=== PATIENT | male | born 1950 | race African-American/Black ===

== ENCOUNTER 2017-07-11 13:57 | Inpatient (IN) ==
[2017-07-11] MEDS ORDERED: ONDANSETRON 4 MG/2 ML VIAL IV PRN (16:56)
[2017-07-11] MEDS ORDERED: GLUCAGON 1 MG VIAL IM PRN (16:56)
[2017-07-11] MEDS ORDERED: LABETALOL 20 MG/4 ML SYRINGE IV PRN (16:56)
[2017-07-11] MEDS ORDERED: DEXTROSE 50% 25 GM/50 ML VIAL IV PRN (16:56)
[2017-07-11] MEDS: ENOXAPARIN 40 MG/0.4 ML SYRINGE SUBCUT SCH (17:48)
[2017-07-11] MEDS: SODIUM CHLORIDE 0.9% 1,000 ML IV SCH (17:48)
[2017-07-11 18:26] LABS: Calcium 9.2 MG/DL (8.5-10.1); Osmolality,Calculated 253.2 MOS/KG (273-304); Potassium 3.8 MMOL/L (3.5-5.1); Thyroid Stimulating Hormone 0.631 uIU/ml (0.358-3.74)
[2017-07-11 18:40] LABS: Apearance,Urine CLEAR (Clear); Bilirubin,Urine Negative (Negative); Blood, Urine Negative (Negative); Glucose,Urine (UA) Negative (Negative); Hyaline Casts,Urine 1 /LPF (0-3); Ketones,Urine Negative (Negative); Mucus,Urine Occasional /LPF (Occasional); Nitrite,Urine Negative (Negative); Protein,Urine Negative; Squamous Epithelial Cell,Urine Occasional /HPF (0-10); Urine Color Yellow (Yellow); Urine Specific Gravity 1.005 (1.001-1.035); Urine Urobilinogen < 2.0 EU/DL (0.2-1.0); WBC,Urine <1 /HPF (0-6)
[2017-07-11] MEDS: ATORVASTATIN 40 MG TABLET PO SCH (20:23)
[2017-07-11] MEDS: INSULIN LISPRO 100 UNIT/ML SUBCUT SCH (22:48)
[2017-07-12] MEDS: SODIUM CHLORIDE 0.9% 1,000 ML IV SCH ×5 (04:48→23:07)
[2017-07-12 07:23] LABS: Basophils % 0.3 % (0.0-0.8); Eosinophils # 0.1 10*3/uL (0.0-0.87); Eosinophils % 0.7 % (0.00-10.9); Hematocrit 32.5 VOL% (42.0-52.0); Hemoglobin 11.2 GM/DL (14.0-18.0); Immature Granulocytes % 0.5 %; Immature Granulocytes Absolute 0.05 #; Lymphocytes # 1.6 10*3/uL (1.4-4.0); Lymphocytes % 14.7 % (21.2-54.2); Mean Corpuscular HGB Conc 34.5 GM/DL (32-36); Mean Corpuscular Hemoglobin 30 PG (27-34); Mean Corpuscular Volume 85.8 FL (87-102); Mean Platelet Volume 10.3 FL (9.6-12.0); Monocytes # 1.3 10*3/uL (0.11-0.8); Monocytes % 12.4 % (1.7-12.7); Neutrophils # 7.7 10*3/uL (1.4-7.4); Neutrophils % 71.4 % (38.7-73.9); Platelet Count 281 T/CUMM (130-400); Red Blood Count 3.79 MC/CUMM (3.8-5.5); Red Cell Distribution Width 13.4 % (9.3-17.3); White Blood Count 10.8 T/CUMM (4-12)
[2017-07-12 07:47] LABS: Calcium 8.6 MG/DL (8.5-10.1); Osmolality,Calculated 253.8 MOS/KG (273-304); Potassium 4.4 MMOL/L (3.5-5.1); Risk Ratio 3.86; VLDL CHOLESTEROL 20.6 MG/DL
[2017-07-12] MEDS: BENAZEPRIL 10 MG TABLET PO SCH (09:44)
[2017-07-12] MEDS: INSULIN LISPRO 100 UNIT/ML SUBCUT SCH ×4 (09:44→20:56)
[2017-07-12] MEDS: amLODIPine 10 MG TABLET PO SCH (09:44)
[2017-07-12] MEDS: ASPIRIN 325 MG TABLET PO SCH (09:44)
[2017-07-12] MEDS ORDERED: PROMETHAZINE 25 MG/1 ML VIAL IM STA (12:48)
[2017-07-12] MEDS: ENOXAPARIN 40 MG/0.4 ML SYRINGE SUBCUT SCH (17:23)
[2017-07-12] MEDS: ATORVASTATIN 40 MG TABLET PO SCH (20:48)
[2017-07-13 07:16] LABS: Basophils % 0.4 % (0.0-0.8); Eosinophils # 0.3 10*3/uL (0.0-0.87); Eosinophils % 2.5 % (0.00-10.9); Hematocrit 33.2 VOL% (42.0-52.0); Hemoglobin 11.3 GM/DL (14.0-18.0); Immature Granulocytes % 0.3 %; Immature Granulocytes Absolute 0.03 #; Lymphocytes # 1.5 10*3/uL (1.4-4.0); Lymphocytes % 14.4 % (21.2-54.2); Mean Corpuscular Hemoglobin 30 PG (27-34); Mean Corpuscular Volume 87.4 FL (87-102); Monocytes # 1.1 10*3/uL (0.11-0.8); Monocytes % 10.1 % (1.7-12.7); Neutrophils # 7.6 10*3/uL (1.4-7.4); Neutrophils % 72.3 % (38.7-73.9); Platelet Count 273 T/CUMM (130-400); Red Cell Distribution Width 13.7 % (9.3-17.3); White Blood Count 10.5 T/CUMM (4-12)
[2017-07-13 08:03] LABS: Calcium 8.9 MG/DL (8.5-10.1); Magnesium 2.3 MG/DL (1.8-2.4); Osmolality,Calculated 256.5 MOS/KG (273-304); Potassium 4.3 MMOL/L (3.5-5.1); Troponin I Only 0.031 NG/ML (0.00-0.045)
[2017-07-13] MEDS: INSULIN LISPRO 100 UNIT/ML SUBCUT SCH ×3 (08:10→17:35)
[2017-07-13] MEDS: BENAZEPRIL 10 MG TABLET PO SCH (08:59)
[2017-07-13] MEDS: amLODIPine 10 MG TABLET PO SCH (09:00)
[2017-07-13] MEDS: ASPIRIN 325 MG TABLET PO SCH (09:00)
[2017-07-13] MEDS: SODIUM CHLORIDE 0.9% 1,000 ML IV SCH ×3 (09:01→21:45)
[2017-07-13] MEDS: ENOXAPARIN 40 MG/0.4 ML SYRINGE SUBCUT SCH (17:35)
[2017-07-13] MEDS: ATORVASTATIN 40 MG TABLET PO SCH (21:04)
[2017-07-14] MEDS: INSULIN LISPRO 100 UNIT/ML SUBCUT SCH ×4 (00:17→18:07)
[2017-07-14] MEDS: SODIUM CHLORIDE 0.9% 1,000 ML IV SCH ×5 (00:28→16:44)
[2017-07-14] MEDS ORDERED: FUROSEMIDE 40 MG/4 ML VIAL IV ONE ×2 (02:20→02:23)
[2017-07-14] MEDS ORDERED: FUROSEMIDE 40 MG/4 ML VIAL ONE (02:25)
[2017-07-14 03:17] LABS: ABG Base Excess 5.7 MMOL/L (-2.5-2.5); ABG HCO3 29.1 MMOL/L (20-26); ABG Oxygen Saturation 72.6 % (95-100); ABG PCO2 59.4 MM HG (35-48); ABG PH 7.354 (7.35-7.45); ABG TCO2 29.9 MMOL/L (23-27)
[2017-07-14 03:18] LABS: Allen Test Positive
[2017-07-14 03:22] LABS: ABG PO2 40.8 MM HG (80-95)
[2017-07-14] MEDS ORDERED: PROPOFOL 1,000 MG/100 ML BOTTLE IV ONE (03:38)
[2017-07-14] MEDS ORDERED: fentaNYL INJ 1,250 MCG in SODIUM CHLORIDE 0.9% 225 ML IV SCH (04:00)
[2017-07-14] MEDS ORDERED: MIDAZOLAM 100 MG in SODIUM CHLORIDE 0.9% 80 ML IV SCH (04:00)
[2017-07-14 04:24] LABS: Allen Test Positive; Pt O2 Delivery Device Ventilator
[2017-07-14 04:27] LABS: ABG Base Excess 5.6 MMOL/L (-2.5-2.5); ABG HCO3 29.5 MMOL/L (20-26); ABG Oxygen Saturation 95.4 % (95-100); ABG PH 7.426 (7.35-7.45); ABG TCO2 27.7 MMOL/L (23-27)
[2017-07-14 05:41] LABS: Magnesium 1.9 MG/DL (1.8-2.4); Osmolality,Calculated 267.9 MOS/KG (273-304); Phosphorous 3.2 MG/DL (2.5-4.9); Potassium 4.7 MMOL/L (3.5-5.1); Prealbumin 16.7 MG/DL (20-40)
[2017-07-14 06:36] LABS: Apearance,Urine CLEAR (Clear); Bilirubin,Urine Negative (Negative); Blood, Urine Small mg/dL (Negative); Glucose,Urine (UA) Negative (Negative); Hyaline Casts,Urine 4 /LPF (0-3); Ketones,Urine 5 mg/dL (Negative); Nitrite,Urine Negative (Negative); Protein,Urine Negative; RBC,Urine <1 /HPF (0-4); Squamous Epithelial Cell,Urine Occasional /HPF (0-10); Urine Color Straw (Yellow); Urine Specific Gravity 1.005 (1.001-1.035); Urine Urobilinogen < 2.0 EU/DL (0.2-1.0); WBC,Urine <1 /HPF (0-6)
[2017-07-14] MEDS ORDERED: SUCCINYLCHOLINE 200 MG/10 ML VIAL ONE (07:19)
[2017-07-14] MEDS ORDERED: ETOMIDATE 20 MG/10 ML VIAL IV ONE (07:19)
[2017-07-14 07:30] LABS: Basophils % 0.2 % (0.0-0.8); Eosinophils % 0.2 % (0.00-10.9); Hematocrit 35.1 VOL% (42.0-52.0); Hemoglobin 11.9 GM/DL (14.0-18.0); Immature Granulocytes % 0.4 %; Immature Granulocytes Absolute 0.06 #; Lymphocytes # 1.3 10*3/uL (1.4-4.0); Lymphocytes % 9.9 % (21.2-54.2); Mean Corpuscular HGB Conc 33.9 GM/DL (32-36); Mean Corpuscular Hemoglobin 30 PG (27-34); Mean Corpuscular Volume 86.9 FL (87-102); Mean Platelet Volume 9.6 FL (9.6-12.0); Monocytes # 0.8 10*3/uL (0.11-0.8); Monocytes % 6.2 % (1.7-12.7); Neutrophils # 11.1 10*3/uL (1.4-7.4); Neutrophils % 83.1 % (38.7-73.9); Platelet Count 286 T/CUMM (130-400); Red Blood Count 4.04 MC/CUMM (3.8-5.5); Red Cell Distribution Width 13.8 % (9.3-17.3); White Blood Count 13.3 T/CUMM (4-12)
[2017-07-14] MEDS ORDERED: SODIUM CHLORIDE 0.9% 500 ML IV ONE (10:10)
[2017-07-14] MEDS: amLODIPine 10 MG TABLET PO SCH (10:17)
[2017-07-14] MEDS: BENAZEPRIL 10 MG TABLET PO SCH (10:17)
[2017-07-14] MEDS: methylPREDNISolone SOD SUC 40 MG/1 ML VIAL IV SCH ×2 (10:32→18:07)
[2017-07-14] MEDS: PIPERACILLIN/TAZOBACTAM 3,375 MG in SODIUM CHLORIDE 0.9% 100 ML IV SCH ×2 (10:32→18:08)
[2017-07-14] MEDS: PANTOPRAZOLE 40 MG VIAL IV SCH (10:32)
[2017-07-14] MEDS: ASPIRIN 325 MG TABLET PO SCH (10:32)
[2017-07-14] MEDS: ENOXAPARIN 100 MG/ML SYRINGE SUBCUT SCH ×2 (10:48→21:12)
[2017-07-14 11:35] LABS: ABG HCO3 26.9 MMOL/L (20-26); ABG Oxygen Saturation 88.7 % (95-100); ABG PCO2 49.6 MM HG (35-48); ABG PH 7.376 (7.35-7.45)
[2017-07-14] MEDS: ALBUTEROL/IPRATROPIUM 3 ML NEB RESP TX SCH ×2 (13:43→20:10)
[2017-07-14 15:02] LABS: ABG HCO3 24.4 MMOL/L (20-26); ABG Oxygen Saturation 95.5 % (95-100); ABG PCO2 48.2 MM HG (35-48); ABG PH 7.344 (7.35-7.45); ABG PO2 81.7 MM HG (80-95); ABG TCO2 23.6 MMOL/L (23-27)
[2017-07-14] MEDS: PROPOFOL 1,000 MG/100 ML BOTTLE IV SCH (15:45)
[2017-07-14] MEDS: ATORVASTATIN 40 MG TABLET PO SCH (20:55)
[2017-07-15] MEDS: SODIUM CHLORIDE 0.9% 1,000 ML IV SCH ×4 (00:33→17:36)
[2017-07-15] MEDS: ALBUTEROL/IPRATROPIUM 3 ML NEB RESP TX SCH ×4 (00:41→19:22)
[2017-07-15] MEDS: INSULIN LISPRO 100 UNIT/ML SUBCUT SCH ×4 (00:47→17:51)
[2017-07-15] MEDS: methylPREDNISolone SOD SUC 40 MG/1 ML VIAL IV SCH ×3 (00:48→17:52)
[2017-07-15] MEDS: PIPERACILLIN/TAZOBACTAM 3,375 MG in SODIUM CHLORIDE 0.9% 100 ML IV SCH ×3 (03:00→17:51)
[2017-07-15 03:30] LABS: Allen Test Positive; Pt O2 Delivery Device Ventilator
[2017-07-15 03:31] LABS: ABG Base Excess -1.2 MMOL/L (-2.5-2.5); ABG HCO3 23.3 MMOL/L (20-26); ABG Oxygen Saturation 99.3 % (95-100); ABG PCO2 37.9 MM HG (35-48); ABG PH 7.406 (7.35-7.45); ABG PO2 367.6 MM HG (80-95); ABG TCO2 24.4 MMOL/L (23-27)
[2017-07-15] MEDS ORDERED: SODIUM CHLORIDE 0.9% 500 ML IV ONE (04:24)
[2017-07-15 04:28] LABS: Basophils % 0.1 % (0.0-0.8); Hematocrit 32.4 VOL% (42.0-52.0); Hemoglobin 10.8 GM/DL (14.0-18.0); Immature Granulocytes % 0.5 %; Immature Granulocytes Absolute 0.08 #; Lymphocytes % 5.9 % (21.2-54.2); Mean Corpuscular HGB Conc 33.3 GM/DL (32-36); Mean Corpuscular Hemoglobin 30 PG (27-34); Mean Corpuscular Volume 88.5 FL (87-102); Mean Platelet Volume 9.7 FL (9.6-12.0); Monocytes # 0.6 10*3/uL (0.11-0.8); Monocytes % 3.7 % (1.7-12.7); Neutrophils # 15.5 10*3/uL (1.4-7.4); Neutrophils % 89.8 % (38.7-73.9); Platelet Count 250 T/CUMM (130-400); Red Blood Count 3.66 MC/CUMM (3.8-5.5); Red Cell Distribution Width 14.3 % (9.3-17.3); White Blood Count 17.2 T/CUMM (4-12)
[2017-07-15 04:59] LABS: Calcium 8.8 MG/DL (8.5-10.1); Magnesium 2.1 MG/DL (1.8-2.4); Osmolality,Calculated 281.8 MOS/KG (273-304); Potassium 4.8 MMOL/L (3.5-5.1)
[2017-07-15] MEDS ORDERED: SALIVA SUBSTITUTE SPRAY 60 ML CAN SWISH/SPIT PRN (06:21)
[2017-07-15] MEDS: ENOXAPARIN 100 MG/ML SYRINGE SUBCUT SCH ×2 (09:30→21:23)
[2017-07-15] MEDS: PANTOPRAZOLE 40 MG VIAL IV SCH (09:30)
[2017-07-15] MEDS: amLODIPine 10 MG TABLET PO SCH (09:32)
[2017-07-15] MEDS: ASPIRIN 325 MG TABLET PO SCH (09:32)
[2017-07-15] MEDS: BENAZEPRIL 10 MG TABLET PO SCH (09:32)
[2017-07-15] MEDS: PROPOFOL 1,000 MG/100 ML BOTTLE IV SCH (12:37)
[2017-07-15] MEDS: ATORVASTATIN 40 MG TABLET PO SCH (21:23)
[2017-07-16] MEDS: INSULIN LISPRO 100 UNIT/ML SUBCUT SCH ×5 (00:12→17:23)
[2017-07-16] MEDS: SODIUM CHLORIDE 0.9% 1,000 ML IV SCH ×4 (00:13→16:19)
[2017-07-16] MEDS: ALBUTEROL/IPRATROPIUM 3 ML NEB RESP TX SCH ×4 (00:47→19:15)
[2017-07-16] MEDS: PIPERACILLIN/TAZOBACTAM 3,375 MG in SODIUM CHLORIDE 0.9% 100 ML IV SCH ×3 (03:33→17:24)
[2017-07-16] MEDS: methylPREDNISolone SOD SUC 40 MG/1 ML VIAL IV SCH ×3 (03:33→17:23)
[2017-07-16 07:35] LABS: ABG Base Excess -0.4 MMOL/L (-2.5-2.5); ABG Oxygen Saturation 94.8 % (95-100); ABG PCO2 34.7 MM HG (35-48); ABG PH 7.435 (7.35-7.45); ABG TCO2 21.1 MMOL/L (23-27)
[2017-07-16] MEDS: PANTOPRAZOLE 40 MG VIAL IV SCH (08:28)
[2017-07-16] MEDS: amLODIPine 10 MG TABLET PO SCH (08:28)
[2017-07-16] MEDS: ASPIRIN 325 MG TABLET PO SCH (08:28)
[2017-07-16] MEDS: PROPOFOL 1,000 MG/100 ML BOTTLE IV SCH ×4 (08:37→19:15)
[2017-07-16] MEDS: ENOXAPARIN 100 MG/ML SYRINGE SUBCUT SCH ×2 (09:12→22:00)
[2017-07-16] MEDS: DORNASE ALFA 2.5 MG/2.5 ML VIAL RESP TX SCH ×2 (09:54→19:22)
[2017-07-16 13:57] LABS: Basophils % 0.1 % (0.0-0.8); Hemoglobin 10.3 GM/DL (14.0-18.0); Immature Granulocytes % 0.9 %; Immature Granulocytes Absolute 0.14 #; Lymphocytes # 0.7 10*3/uL (1.4-4.0); Mean Corpuscular HGB Conc 34.3 GM/DL (32-36); Mean Corpuscular Hemoglobin 30 PG (27-34); Mean Platelet Volume 10.7 FL (9.6-12.0); Monocytes # 0.9 10*3/uL (0.11-0.8); Monocytes % 5.3 % (1.7-12.7); Neutrophils # 14.4 10*3/uL (1.4-7.4); Neutrophils % 89.7 % (38.7-73.9); Platelet Count 248 T/CUMM (130-400); Red Blood Count 3.41 MC/CUMM (3.8-5.5); Red Cell Distribution Width 14.6 % (9.3-17.3); White Blood Count 16.1 T/CUMM (4-12)
[2017-07-16 14:04] LABS: Calcium 8.2 MG/DL (8.5-10.1); Osmolality,Calculated 294.4 MOS/KG (273-304); Potassium 4.6 MMOL/L (3.5-5.1)
[2017-07-16 14:16] LABS: Burr Cells Slight; Lymphocytes 4 % (20-55); Segmented Neutrophils 92 % (50-85); Total Cells Counted 100
[2017-07-16 14:17] LABS: Platelet Estimate Adequate; Schistocytes Few
[2017-07-16] MEDS: ATORVASTATIN 40 MG TABLET PO SCH (21:45)
[2017-07-17] MEDS: INSULIN LISPRO 100 UNIT/ML SUBCUT SCH ×5 (00:13→20:20)
[2017-07-17] MEDS: SODIUM CHLORIDE 0.9% 1,000 ML IV SCH ×2 (00:14→10:08)
[2017-07-17] MEDS: PROPOFOL 1,000 MG/100 ML BOTTLE IV SCH ×3 (00:15→14:26)
[2017-07-17] MEDS: ALBUTEROL/IPRATROPIUM 3 ML NEB RESP TX SCH ×4 (01:06→19:36)
[2017-07-17] MEDS: PIPERACILLIN/TAZOBACTAM 3,375 MG in SODIUM CHLORIDE 0.9% 100 ML IV SCH ×3 (03:00→17:53)
[2017-07-17] MEDS: methylPREDNISolone SOD SUC 40 MG/1 ML VIAL IV SCH ×3 (03:15→17:54)
[2017-07-17 03:21] LABS: ABG HCO3 22.9 MMOL/L (20-26); ABG Oxygen Saturation 98.3 % (95-100); ABG PH 7.486 (7.35-7.45); ABG PO2 158.2 MM HG (80-95); ABG TCO2 23.8 MMOL/L (23-27)
[2017-07-17 06:03] LABS: Calcium 8.9 MG/DL (8.5-10.1); Magnesium 2.6 MG/DL (1.8-2.4); Osmolality,Calculated 308.4 MOS/KG (273-304); Potassium 4.4 MMOL/L (3.5-5.1)
[2017-07-17] MEDS: DORNASE ALFA 2.5 MG/2.5 ML VIAL RESP TX SCH ×2 (07:35→19:46)
[2017-07-17 09:38] LABS: ABG Base Excess -0.6 MMOL/L (-2.5-2.5); ABG Oxygen Saturation 92.9 % (95-100); ABG PCO2 39.2 MM HG (35-48); ABG PH 7.405 (7.35-7.45); ABG PO2 69.9 MM HG (80-95); ABG TCO2 25.2 MMOL/L (23-27); Allen Test Positive; Pt O2 Delivery Device BIPAP
[2017-07-17] MEDS: ENOXAPARIN 100 MG/ML SYRINGE SUBCUT SCH (10:09)
[2017-07-17] MEDS: PANTOPRAZOLE 40 MG VIAL IV SCH (10:09)
[2017-07-17] MEDS: amLODIPine 10 MG TABLET PO SCH (10:10)
[2017-07-17] MEDS: ASPIRIN 325 MG TABLET PO SCH (10:10)
[2017-07-17] MEDS: INSULIN GLARGINE 100 UNIT/ML SUBCUT SCH (16:48)
[2017-07-17] MEDS: FUROSEMIDE 40 MG/4 ML VIAL IV SCH (16:49)
[2017-07-17] MEDS: ATORVASTATIN 40 MG TABLET PO SCH (20:20)
[2017-07-18] MEDS: PIPERACILLIN/TAZOBACTAM 3,375 MG in SODIUM CHLORIDE 0.9% 100 ML IV SCH ×3 (01:34→19:00)
[2017-07-18] MEDS: methylPREDNISolone SOD SUC 40 MG/1 ML VIAL IV SCH ×3 (01:34→21:05)
[2017-07-18] MEDS: ALBUTEROL/IPRATROPIUM 3 ML NEB RESP TX SCH ×4 (02:28→19:30)
[2017-07-18] MEDS: DORNASE ALFA 2.5 MG/2.5 ML VIAL RESP TX SCH (07:24)
[2017-07-18] MEDS: amLODIPine 10 MG TABLET PO SCH (08:20)
[2017-07-18] MEDS: ASPIRIN 325 MG TABLET PO SCH (08:20)
[2017-07-18] MEDS: PANTOPRAZOLE 40 MG VIAL IV SCH (08:22)
[2017-07-18] MEDS: INSULIN GLARGINE 100 UNIT/ML SUBCUT SCH (08:22)
[2017-07-18] MEDS: FUROSEMIDE 40 MG/4 ML VIAL IV SCH (08:22)
[2017-07-18] MEDS: INSULIN LISPRO 100 UNIT/ML SUBCUT SCH ×4 (08:22→21:04)
[2017-07-18] MEDS ORDERED: ENOXAPARIN 30 MG/0.3 ML SYRINGE SUBCUT SCH (09:00)
[2017-07-18] MEDS ORDERED: INSULIN GLARGINE 100 UNIT/ML SUBCUT SCH (14:09)
[2017-07-18] MEDS: INSULIN REGULAR 100 UNIT/ML SUBCUT SCH ×2 (17:01→21:05)
[2017-07-18] MEDS: ATORVASTATIN 40 MG TABLET PO SCH (21:03)
[2017-07-19] MEDS: ALBUTEROL/IPRATROPIUM 3 ML NEB RESP TX SCH ×4 (00:16→19:33)
[2017-07-19] MEDS: PIPERACILLIN/TAZOBACTAM 3,375 MG in SODIUM CHLORIDE 0.9% 100 ML IV SCH ×2 (02:55→08:23)
[2017-07-19 05:17] LABS: Basophils % 0.1 % (0.0-0.8); Hematocrit 32.5 VOL% (42.0-52.0); Immature Granulocytes % 5.1 %; Lymphocytes # 1.1 10*3/uL (1.4-4.0); Lymphocytes % 6.1 % (21.2-54.2); Mean Corpuscular HGB Conc 33.8 GM/DL (32-36); Mean Corpuscular Hemoglobin 30 PG (27-34); Mean Corpuscular Volume 88.3 FL (87-102); Mean Platelet Volume 10.2 FL (9.6-12.0); Monocytes # 1.5 10*3/uL (0.11-0.8); Monocytes % 8.6 % (1.7-12.7); NRBC # 0.04 10*3/uL; Neutrophils # 14.1 10*3/uL (1.4-7.4); Neutrophils % 80.1 % (38.7-73.9); Platelet Count 272 T/CUMM (130-400); Red Blood Count 3.68 MC/CUMM (3.8-5.5); Red Cell Distribution Width 14.7 % (9.3-17.3); White Blood Count 17.6 T/CUMM (4-12)
[2017-07-19 05:52] LABS: Giant Platelets Few; Hypochromasia 1+; Lymphocytes 8 % (20-55); Ovalocytes Slight; Platelet Estimate Adequate; Segmented Neutrophils 80 % (50-85); Total Cells Counted 100
[2017-07-19] MEDS: ASPIRIN 325 MG TABLET PO SCH (08:28)
[2017-07-19] MEDS: INSULIN REGULAR 100 UNIT/ML SUBCUT SCH ×4 (08:28→20:42)
[2017-07-19] MEDS: methylPREDNISolone SOD SUC 40 MG/1 ML VIAL IV SCH ×2 (08:28→21:36)
[2017-07-19] MEDS: amLODIPine 10 MG TABLET PO SCH (08:28)
[2017-07-19] MEDS: PANTOPRAZOLE 40 MG VIAL IV SCH (08:28)
[2017-07-19] MEDS: INSULIN LISPRO 100 UNIT/ML SUBCUT SCH ×4 (08:29→20:43)
[2017-07-19] MEDS: ENOXAPARIN 40 MG/0.4 ML SYRINGE SUBCUT SCH (08:37)
[2017-07-19] MEDS ORDERED: LEVOFLOXACIN INJ 750 MG in PREMIX 1 EACH IV SCH (09:30)
[2017-07-19] MEDS: CARVEDILOL 6.25 MG TABLET PO SCH ×2 (13:32→20:44)
[2017-07-19] MEDS: ATORVASTATIN 40 MG TABLET PO SCH (20:44)
[2017-07-20] MEDS: ALBUTEROL/IPRATROPIUM 3 ML NEB RESP TX SCH ×4 (00:32→19:17)
[2017-07-20] MEDS ORDERED: fentaNYL 100 MCG/2 ML VIAL IV PRN (04:21)
[2017-07-20] MEDS ORDERED: PROPOFOL 1,000 MG/100 ML BOTTLE IV ONE (04:21)
[2017-07-20] MEDS ORDERED: GLUCAGON 1 MG VIAL IM PRN (04:48)
[2017-07-20] MEDS ORDERED: DEXTROSE 50% 25 GM/50 ML VIAL IV PRN (04:48)
[2017-07-20 05:19] LABS: ABG Base Excess -1.3 MMOL/L (-2.5-2.5); ABG HCO3 23.3 MMOL/L (20-26); ABG Oxygen Saturation 97.4 % (95-100); ABG PCO2 45.1 MM HG (35-48); ABG PH 7.345 (7.35-7.45); ABG TCO2 22.1 MMOL/L (23-27)
[2017-07-20 06:26] LABS: Basophils # 0.1 10*3/uL (0.0-0.2); Basophils % 0.2 % (0.0-0.8); Hematocrit 33.6 VOL% (42.0-52.0); Hemoglobin 11.4 GM/DL (14.0-18.0); Immature Granulocytes % 4.7 %; Immature Granulocytes Absolute 1.26 #; Lymphocytes # 1.1 10*3/uL (1.4-4.0); Lymphocytes % 4.1 % (21.2-54.2); Mean Corpuscular HGB Conc 33.9 GM/DL (32-36); Mean Corpuscular Hemoglobin 30 PG (27-34); Mean Corpuscular Volume 88.4 FL (87-102); Mean Platelet Volume 10.4 FL (9.6-12.0); Monocytes % 7.6 % (1.7-12.7); NRBC # 0.12 10*3/uL; Neutrophils # 22.2 10*3/uL (1.4-7.4); Neutrophils % 83.4 % (38.7-73.9); Platelet Count 320 T/CUMM (130-400); Red Cell Distribution Width 15.1 % (9.3-17.3); White Blood Count 26.7 T/CUMM (4-12)
[2017-07-20 06:51] LABS: Hypochromasia 1+; Lymphocytes 4 % (20-55); Nucleated Red Blood Cells 1 (0-5); Segmented Neutrophils 89 % (50-85); Total Cells Counted 100
[2017-07-20 06:52] LABS: Burr Cells Slight; Microcytosis 1+; Platelet Estimate Normal
[2017-07-20] MEDS: INSULIN REGULAR 100 UNIT/ML SUBCUT SCH ×3 (07:02→18:26)
[2017-07-20 07:04] LABS: Calcium 8.8 MG/DL (8.5-10.1); Magnesium 2.5 MG/DL (1.8-2.4); Osmolality,Calculated 304.7 MOS/KG (273-304); Phosphorous 6.8 MG/DL (2.5-4.9); Potassium 5.6 MMOL/L (3.5-5.1); Prealbumin 21.6 MG/DL (20-40)
[2017-07-20] MEDS ORDERED: LORazepam 2 MG/1 ML VIAL IV ONE ×3 (07:59→10:17)
[2017-07-20] MEDS ORDERED: levETIRAcetam INJ 500 MG in SODIUM CHLORIDE 0.9% 50 ML IV ONE ×2 (08:30→08:43)
[2017-07-20] MEDS: PROPOFOL 1,000 MG/100 ML BOTTLE IV SCH ×4 (08:35→23:33)
[2017-07-20] MEDS: ASPIRIN CHEW 81 MG TABLET PO SCH (09:23)
[2017-07-20] MEDS: amLODIPine 10 MG TABLET PO SCH (09:23)
[2017-07-20] MEDS: CARVEDILOL 6.25 MG TABLET PO SCH (09:23)
[2017-07-20] MEDS: ENOXAPARIN 40 MG/0.4 ML SYRINGE SUBCUT SCH (09:28)
[2017-07-20] MEDS: PANTOPRAZOLE 40 MG VIAL IV SCH (09:29)
[2017-07-20] MEDS: methylPREDNISolone SOD SUC 40 MG/1 ML VIAL IV SCH ×2 (09:31→22:15)
[2017-07-20] MEDS ORDERED: SODIUM POLYSTYRENE SULFATE 15 GM/60 ML BOTTLE PO ONE (12:57)
[2017-07-20] MEDS ORDERED: INSULIN REGULAR 100 UNIT/ML IV ONE (13:04)
[2017-07-20] MEDS: INSULIN GLARGINE 100 UNIT/ML SUBCUT SCH (15:47)
[2017-07-20] MEDS: levETIRAcetam INJ 500 MG in SODIUM CHLORIDE 0.9% 50 ML IV SCH ×2 (15:48→23:24)
[2017-07-20] MEDS: PIPERACILLIN/TAZOBACTAM 3,375 MG in SODIUM CHLORIDE 0.9% 100 ML IV SCH ×2 (15:58→22:18)
[2017-07-20 22:15] LABS: Apearance,Urine Slightly Hazy (Clear); Bacteria,Urine Occasional /HPF (Few); Bilirubin,Urine Negative (Negative); Blood, Urine Negative (Negative); Glucose,Urine (UA) Negative (Negative); Ketones,Urine Negative (Negative); Mucus,Urine Occasional /LPF (Occasional); Nitrite,Urine Negative (Negative); Protein,Urine Negative; RBC,Urine 3 /HPF (0-4); Urine Color Yellow (Yellow); Urine Specific Gravity 1.023 (1.001-1.035); Urine Urobilinogen < 2.0 EU/DL (0.2-1.0); WBC,Urine 10 /HPF (0-6)
[2017-07-20] MEDS: ATORVASTATIN 40 MG TABLET PO SCH (22:15)
[2017-07-21] MEDS: ALBUTEROL/IPRATROPIUM 3 ML NEB RESP TX SCH ×4 (00:17→18:57)
[2017-07-21] MEDS: INSULIN REGULAR 100 UNIT/ML SUBCUT SCH ×7 (00:39→23:49)
[2017-07-21] MEDS: PROPOFOL 1,000 MG/100 ML BOTTLE IV SCH ×4 (04:33→18:22)
[2017-07-21 05:24] LABS: ABG Base Excess -0.8 MMOL/L (-2.5-2.5); ABG HCO3 23.8 MMOL/L (20-26); ABG Oxygen Saturation 99.5 % (95-100); ABG PCO2 34.7 MM HG (35-48); ABG TCO2 20.7 MMOL/L (23-27)
[2017-07-21 05:35] LABS: Basophils % 0.2 % (0.0-0.8); Hemoglobin 10.5 GM/DL (14.0-18.0); Immature Granulocytes % 4.4 %; Lymphocytes # 1.4 10*3/uL (1.4-4.0); Lymphocytes % 5.6 % (21.2-54.2); Mean Corpuscular HGB Conc 33.9 GM/DL (32-36); Mean Corpuscular Hemoglobin 30 PG (27-34); Mean Corpuscular Volume 88.6 FL (87-102); Monocytes # 2.2 10*3/uL (0.11-0.8); Monocytes % 8.9 % (1.7-12.7); NRBC # 0.23 10*3/uL; Neutrophils # 20.3 10*3/uL (1.4-7.4); Neutrophils % 80.9 % (38.7-73.9); Platelet Count 279 T/CUMM (130-400); Red Cell Distribution Width 15.1 % (9.3-17.3); White Blood Count 25.1 T/CUMM (4-12)
[2017-07-21 06:06] LABS: Calcium 8.7 MG/DL (8.5-10.1); Magnesium 2.6 MG/DL (1.8-2.4); Osmolality,Calculated 323.1 MOS/KG (273-304); Phosphorous 6.9 MG/DL (2.5-4.9); Potassium 4.9 MMOL/L (3.5-5.1); Prealbumin 21.9 MG/DL (20-40)
[2017-07-21] MEDS: PIPERACILLIN/TAZOBACTAM 3,375 MG in SODIUM CHLORIDE 0.9% 100 ML IV SCH ×3 (06:07→22:33)
[2017-07-21 07:39] LABS: Burr Cells 2+; Lymphocytes 7 % (20-55); Nucleated Red Blood Cells 1 (0-5); Polychromasia Slight; Segmented Neutrophils 86 % (50-85); Target Cells Slight; Total Cells Counted 100
[2017-07-21 07:40] LABS: Platelet Estimate Adequate
[2017-07-21] MEDS: INSULIN GLARGINE 100 UNIT/ML SUBCUT SCH (09:08)
[2017-07-21] MEDS: levETIRAcetam INJ 500 MG in SODIUM CHLORIDE 0.9% 50 ML IV SCH ×3 (09:08→23:50)
[2017-07-21] MEDS: ENOXAPARIN 40 MG/0.4 ML SYRINGE SUBCUT SCH (09:09)
[2017-07-21] MEDS: PANTOPRAZOLE 40 MG VIAL IV SCH (09:09)
[2017-07-21] MEDS: methylPREDNISolone SOD SUC 40 MG/1 ML VIAL IV SCH ×2 (09:09→22:33)
[2017-07-21] MEDS: ASPIRIN CHEW 81 MG TABLET PO SCH (09:09)
[2017-07-21] MEDS ORDERED: PHENYLEPHRINE DRIP 40 MG/250 ML PREMIX IV SCH (12:00)
[2017-07-21] MEDS ORDERED: INSULIN GLARGINE 100 UNIT/ML SUBCUT SCH (14:12)
[2017-07-21 17:12] LABS: Apearance,Urine Slightly Hazy (Clear); Bacteria,Urine Occasional /HPF (Few); Bilirubin,Urine Negative (Negative); Blood, Urine Moderate mg/dL (Negative); Glucose,Urine (UA) 50 mg/dL (Negative); Hyaline Casts,Urine 1 /LPF (0-3); Ketones,Urine Negative (Negative); Mucus,Urine Occasional /LPF (Occasional); Nitrite,Urine Negative (Negative); Protein,Urine Negative; RBC,Urine 1 /HPF (0-4); Uric Acid Crystals,Urine Few /HPF (<1); Urine Color Yellow (Yellow); Urine Specific Gravity 1.013 (1.001-1.035); Urine Urobilinogen < 2.0 EU/DL (0.2-1.0); WBC,Urine 3 /HPF (0-6)
[2017-07-21 17:28] LABS: Albumin 2.6 G/DL (3.4-5.0); Bilirubin,Direct 0.16 MG/DL (0.0-0.20); Bilirubin,Indirect 0.2 MG/DL (0.0-1.0); Bilirubin,Total 0.4 MG/DL (0.2-1.0); Total Protein 5.1 G/DL (6.4-8.3)
[2017-07-21] MEDS: SODIUM ACETATE 50 MEQ in SODIUM CHLORIDE 0.45% 1,000 ML IV SCH (18:22)
[2017-07-21] MEDS: ATORVASTATIN 40 MG TABLET PO SCH (22:33)
[2017-07-22] MEDS: ALBUTEROL/IPRATROPIUM 3 ML NEB RESP TX SCH ×4 (00:13→19:14)
[2017-07-22] MEDS: PROPOFOL 1,000 MG/100 ML BOTTLE IV SCH ×6 (01:16→21:07)
[2017-07-22 04:38] LABS: Basophils % 0.1 % (0.0-0.8); Hemoglobin 10.1 GM/DL (14.0-18.0); Immature Granulocytes % 4.6 %; Lymphocytes # 0.7 10*3/uL (1.4-4.0); Lymphocytes % 3.4 % (21.2-54.2); Mean Corpuscular HGB Conc 33.7 GM/DL (32-36); Mean Corpuscular Hemoglobin 30 PG (27-34); Mean Corpuscular Volume 89.6 FL (87-102); Monocytes % 9.2 % (1.7-12.7); NRBC # 0.12 10*3/uL; Neutrophils % 82.7 % (38.7-73.9); Platelet Count 212 T/CUMM (130-400); Red Blood Count 3.35 MC/CUMM (3.8-5.5); Red Cell Distribution Width 15.3 % (9.3-17.3); White Blood Count 21.7 T/CUMM (4-12)
[2017-07-22 05:27] LABS: ABG Base Excess -0.8 MMOL/L (-2.5-2.5); ABG HCO3 23.7 MMOL/L (20-26); ABG Oxygen Saturation 99.4 % (95-100); ABG PCO2 40.4 MM HG (35-48); ABG PH 7.384 (7.35-7.45); ABG TCO2 21.9 MMOL/L (23-27); Allen Test Positive; Pt O2 Delivery Device Ventilator
[2017-07-22 05:31] LABS: Calcium 8.8 MG/DL (8.5-10.1); Osmolality,Calculated 327.8 MOS/KG (273-304); Potassium 4.6 MMOL/L (3.5-5.1)
[2017-07-22 05:56] LABS: Band Neutrophils 1 % (0-10); Giant Platelets Few; Hypochromasia 1+; Lymphocytes 3 % (20-55); Nucleated Red Blood Cells 2 (0-5); Ovalocytes Slight; Platelet Estimate Adequate; Segmented Neutrophils 88 % (50-85); Total Cells Counted 100
[2017-07-22 05:57] LABS: Microcytosis Slight
[2017-07-22] MEDS: PIPERACILLIN/TAZOBACTAM 3,375 MG in SODIUM CHLORIDE 0.9% 100 ML IV SCH ×3 (06:21→21:08)
[2017-07-22] MEDS: INSULIN REGULAR 100 UNIT/ML SUBCUT SCH ×8 (06:23→23:07)
[2017-07-22] MEDS: levETIRAcetam INJ 500 MG in SODIUM CHLORIDE 0.9% 50 ML IV SCH (06:35)
[2017-07-22] MEDS: MULTIVITAMIN LIQUID (CENTRUM) 60 ML BOTTLE PER TUBE SCH (08:01)
[2017-07-22] MEDS: ASPIRIN CHEW 81 MG TABLET PO SCH (08:01)
[2017-07-22] MEDS: ENOXAPARIN 40 MG/0.4 ML SYRINGE SUBCUT SCH (08:02)
[2017-07-22] MEDS: PANTOPRAZOLE 40 MG VIAL IV SCH (08:02)
[2017-07-22] MEDS: methylPREDNISolone SOD SUC 40 MG/1 ML VIAL IV SCH ×2 (08:02→21:09)
[2017-07-22] MEDS ORDERED: LORazepam 2 MG/1 ML VIAL ONE (10:29)
[2017-07-22] MEDS: LORazepam 2 MG/1 ML VIAL IV PRN ×2 (10:31→10:48)
[2017-07-22] MEDS: miSOPROStol 200 MCG TABLET PO SCH ×3 (12:41→21:10)
[2017-07-22] MEDS ORDERED: PHENYTOIN INJ 1,000 MG in SODIUM CHLORIDE 0.9% 100 ML IV ONE (14:00)
[2017-07-22] MEDS: SODIUM ACETATE 50 MEQ in SODIUM CHLORIDE 0.45% 1,000 ML IV SCH (14:04)
[2017-07-22] MEDS: METOPROLOL TARTRATE 25 MG TABLET PO SCH ×2 (14:04→21:09)
[2017-07-22] MEDS: INSULIN GLARGINE 100 UNIT/ML SUBCUT SCH (21:08)
[2017-07-22] MEDS: ATORVASTATIN 40 MG TABLET PO SCH (21:09)
[2017-07-22] MEDS: PHENYTOIN 100 MG/2 ML VIAL IV SCH (21:13)
[2017-07-23] MEDS: ALBUTEROL/IPRATROPIUM 3 ML NEB RESP TX SCH ×4 (01:00→19:52)
[2017-07-23] MEDS: PROPOFOL 1,000 MG/100 ML BOTTLE IV SCH ×4 (02:45→23:30)
[2017-07-23 05:14] LABS: Basophils % 0.1 % (0.0-0.8); Eosinophils % 0.2 % (0.00-10.9); Hematocrit 30.7 VOL% (42.0-52.0); Hemoglobin 10.2 GM/DL (14.0-18.0); Immature Granulocytes % 5.4 %; Immature Granulocytes Absolute 1.22 #; Lymphocytes # 1.6 10*3/uL (1.4-4.0); Mean Corpuscular HGB Conc 33.2 GM/DL (32-36); Mean Corpuscular Hemoglobin 30 PG (27-34); Mean Platelet Volume 11.3 FL (9.6-12.0); Monocytes # 2.4 10*3/uL (0.11-0.8); Monocytes % 10.6 % (1.7-12.7); NRBC # 0.12 10*3/uL; Neutrophils # 17.4 10*3/uL (1.4-7.4); Neutrophils % 76.7 % (38.7-73.9); Platelet Count 242 T/CUMM (130-400); Red Blood Count 3.41 MC/CUMM (3.8-5.5); Red Cell Distribution Width 15.4 % (9.3-17.3); White Blood Count 22.7 T/CUMM (4-12)
[2017-07-23] MEDS: INSULIN REGULAR 100 UNIT/ML SUBCUT SCH ×6 (06:08→18:26)
[2017-07-23] MEDS: PIPERACILLIN/TAZOBACTAM 3,375 MG in SODIUM CHLORIDE 0.9% 100 ML IV SCH ×3 (06:08→21:05)
[2017-07-23] MEDS: PHENYTOIN 100 MG/2 ML VIAL IV SCH ×3 (06:09→21:06)
[2017-07-23 06:32] LABS: Band Neutrophils 3 % (0-10); Giant Platelets Few; Hypochromasia Slight; Lymphocytes 7 % (20-55); Platelet Estimate Adequate; Segmented Neutrophils 83 % (50-85); Total Cells Counted 100
[2017-07-23 06:33] LABS: Burr Cells Slight; Microcytosis Slight
[2017-07-23] MEDS: METOPROLOL TARTRATE 25 MG TABLET PO SCH ×2 (08:18→21:58)
[2017-07-23] MEDS: ASPIRIN CHEW 81 MG TABLET PO SCH (08:18)
[2017-07-23] MEDS: miSOPROStol 200 MCG TABLET PO SCH ×4 (08:18→21:06)
[2017-07-23] MEDS: PANTOPRAZOLE 40 MG VIAL IV SCH (08:18)
[2017-07-23] MEDS: ENOXAPARIN 40 MG/0.4 ML SYRINGE SUBCUT SCH (08:18)
[2017-07-23] MEDS: INSULIN GLARGINE 100 UNIT/ML SUBCUT SCH ×2 (08:18→21:04)
[2017-07-23] MEDS: methylPREDNISolone SOD SUC 40 MG/1 ML VIAL IV SCH ×2 (08:18→21:04)
[2017-07-23] MEDS: MULTIVITAMIN LIQUID (CENTRUM) 60 ML BOTTLE PER TUBE SCH (08:18)
[2017-07-23] MEDS: SODIUM ACETATE 50 MEQ in SODIUM CHLORIDE 0.45% 1,000 ML IV SCH ×2 (09:58→09:59)
[2017-07-23 11:54] LABS: Albumin 2.4 G/DL (3.4-5.0); Calcium 8.7 MG/DL (8.5-10.1); Osmolality,Calculated 319.4 MOS/KG (273-304); Phosphorous 4.3 MG/DL (2.5-4.9); Potassium 4.5 MMOL/L (3.5-5.1)
[2017-07-23] MEDS: ATORVASTATIN 40 MG TABLET PO SCH (21:06)
[2017-07-24] MEDS: INSULIN REGULAR 100 UNIT/ML SUBCUT SCH ×9 (00:05→17:57)
[2017-07-24] MEDS: ALBUTEROL/IPRATROPIUM 3 ML NEB RESP TX SCH ×4 (01:04→19:12)
[2017-07-24 02:54] LABS: ABG Base Excess 2.1 MMOL/L (-2.5-2.5); ABG HCO3 25.3 MMOL/L (20-26); ABG Oxygen Saturation 98.6 % (95-100); ABG PCO2 34.4 MM HG (35-48); ABG PH 7.484 (7.35-7.45); ABG PO2 160.3 MM HG (80-95); ABG TCO2 26.3 MMOL/L (23-27); Allen Test Positive; Pt O2 Delivery Device Ventilator
[2017-07-24] MEDS: PROPOFOL 1,000 MG/100 ML BOTTLE IV SCH ×2 (05:15→05:33)
[2017-07-24 05:34] LABS: Basophils % 0.2 % (0.0-0.8); Eosinophils # 0.1 10*3/uL (0.0-0.87); Eosinophils % 0.2 % (0.00-10.9); Hematocrit 30.9 VOL% (42.0-52.0); Hemoglobin 10.3 GM/DL (14.0-18.0); Immature Granulocytes % 4.8 %; Immature Granulocytes Absolute 1.13 #; Lymphocytes # 1.6 10*3/uL (1.4-4.0); Lymphocytes % 6.8 % (21.2-54.2); Mean Corpuscular HGB Conc 33.3 GM/DL (32-36); Mean Corpuscular Hemoglobin 30 PG (27-34); Mean Corpuscular Volume 91.2 FL (87-102); Monocytes # 2.6 10*3/uL (0.11-0.8); Monocytes % 11.2 % (1.7-12.7); NRBC # 0.05 10*3/uL; Neutrophils # 18.1 10*3/uL (1.4-7.4); Neutrophils % 76.8 % (38.7-73.9); Platelet Count 236 T/CUMM (130-400); Red Blood Count 3.39 MC/CUMM (3.8-5.5); Red Cell Distribution Width 15.8 % (9.3-17.3); White Blood Count 23.6 T/CUMM (4-12)
[2017-07-24 05:52] LABS: Giant Platelets Few; Hypochromasia 1+; Lymphocytes 6 % (20-55); Platelet Estimate Adequate; Polychromasia Slight; Segmented Neutrophils 84 % (50-85); Total Cells Counted 100
[2017-07-24 05:53] LABS: Macrocytosis Slight
[2017-07-24 06:07] LABS: Calcium 8.4 MG/DL (8.5-10.1); Magnesium 2.8 MG/DL (1.8-2.4); Osmolality,Calculated 324.1 MOS/KG (273-304); Phosphorous 3.4 MG/DL (2.5-4.9); Potassium 4.3 MMOL/L (3.5-5.1); Prealbumin 29.5 MG/DL (20-40)
[2017-07-24] MEDS: SODIUM ACETATE 50 MEQ in SODIUM CHLORIDE 0.45% 1,000 ML IV SCH (06:07)
[2017-07-24] MEDS: PIPERACILLIN/TAZOBACTAM 3,375 MG in SODIUM CHLORIDE 0.9% 100 ML IV SCH ×3 (06:08→21:22)
[2017-07-24] MEDS: PHENYTOIN 100 MG/2 ML VIAL IV SCH ×3 (06:08→21:19)
[2017-07-24] MEDS: miSOPROStol 200 MCG TABLET PO SCH (08:38)
[2017-07-24] MEDS: DEXTROSE 5% 1,000 ML IV SCH ×2 (08:40→21:30)
[2017-07-24] MEDS: METOPROLOL TARTRATE 25 MG TABLET PO SCH ×2 (09:01→21:13)
[2017-07-24] MEDS: ASPIRIN CHEW 81 MG TABLET PO SCH (09:01)
[2017-07-24] MEDS: MULTIVITAMIN LIQUID (CENTRUM) 60 ML BOTTLE PER TUBE SCH (09:03)
[2017-07-24] MEDS: ENOXAPARIN 40 MG/0.4 ML SYRINGE SUBCUT SCH (09:03)
[2017-07-24] MEDS: INSULIN GLARGINE 100 UNIT/ML SUBCUT SCH ×2 (09:03→21:13)
[2017-07-24] MEDS: methylPREDNISolone SOD SUC 40 MG/1 ML VIAL IV SCH ×2 (09:04→21:17)
[2017-07-24] MEDS: PANTOPRAZOLE 40 MG VIAL IV SCH (09:06)
[2017-07-24] MEDS: ATORVASTATIN 40 MG TABLET PO SCH (21:13)
[2017-07-25] MEDS: ALBUTEROL/IPRATROPIUM 3 ML NEB RESP TX SCH ×4 (00:10→19:30)
[2017-07-25] MEDS: INSULIN REGULAR 100 UNIT/ML SUBCUT SCH ×10 (01:13→23:52)
[2017-07-25] MEDS: PROPOFOL 1,000 MG/100 ML BOTTLE IV SCH ×2 (01:15→03:29)
[2017-07-25 04:36] LABS: Calcium 7.9 MG/DL (8.5-10.1); Magnesium 2.3 MG/DL (1.8-2.4); Osmolality,Calculated 312.3 MOS/KG (273-304); Potassium 3.9 MMOL/L (3.5-5.1)
[2017-07-25 04:38] LABS: ABG Base Excess 0.1 MMOL/L (-2.5-2.5); ABG Oxygen Saturation 96.8 % (95-100); ABG PCO2 31.9 MM HG (35-48); ABG PH 7.475 (7.35-7.45); ABG PO2 86.6 MM HG (80-95); ABG TCO2 23.9 MMOL/L (23-27); Allen Test Positive; Pt O2 Delivery Device Ventilator
[2017-07-25] MEDS: PIPERACILLIN/TAZOBACTAM 3,375 MG in SODIUM CHLORIDE 0.9% 100 ML IV SCH ×3 (06:15→21:33)
[2017-07-25] MEDS: PHENYTOIN 100 MG/2 ML VIAL IV SCH ×3 (06:17→21:27)
[2017-07-25] MEDS: INSULIN GLARGINE 100 UNIT/ML SUBCUT SCH ×2 (09:14→21:26)
[2017-07-25] MEDS: METOPROLOL TARTRATE 25 MG TABLET PO SCH ×2 (09:14→21:26)
[2017-07-25] MEDS: ASPIRIN CHEW 81 MG TABLET PO SCH (09:14)
[2017-07-25] MEDS: ENOXAPARIN 40 MG/0.4 ML SYRINGE SUBCUT SCH (09:15)
[2017-07-25] MEDS: methylPREDNISolone SOD SUC 40 MG/1 ML VIAL IV SCH ×2 (09:15→21:30)
[2017-07-25] MEDS: PANTOPRAZOLE 40 MG VIAL IV SCH (09:17)
[2017-07-25] MEDS: MULTIVITAMIN LIQUID (CENTRUM) 60 ML BOTTLE PER TUBE SCH (09:23)
[2017-07-25] MEDS: DEXTROSE 5% 1,000 ML IV SCH (10:54)
[2017-07-25] MEDS: ATORVASTATIN 40 MG TABLET PO SCH (21:26)
[2017-07-26] MEDS: DEXTROSE 5% 1,000 ML IV SCH ×2 (00:20→12:50)
[2017-07-26] MEDS: ALBUTEROL/IPRATROPIUM 3 ML NEB RESP TX SCH ×4 (00:50→19:43)
[2017-07-26] MEDS: PROPOFOL 1,000 MG/100 ML BOTTLE IV SCH (03:30)
[2017-07-26 03:37] LABS: Allen Test Positive; Pt O2 Delivery Device Ventilator
[2017-07-26 03:43] LABS: ABG Base Excess -1.5 MMOL/L (-2.5-2.5); ABG HCO3 22.9 MMOL/L (20-26); ABG Oxygen Saturation 81.7 % (95-100); ABG PCO2 36.2 MM HG (35-48); ABG PH 7.407 (7.35-7.45); ABG PO2 47.1 MM HG (80-95); ABG TCO2 20.8 MMOL/L (23-27)
[2017-07-26 04:25] LABS: ABG Base Excess -1.5 MMOL/L (-2.5-2.5); ABG HCO3 23.1 MMOL/L (20-26); ABG PCO2 33.3 MM HG (35-48); ABG PH 7.432 (7.35-7.45); ABG PO2 65.9 MM HG (80-95)
[2017-07-26 04:28] LABS: Calcium 7.7 MG/DL (8.5-10.1); Magnesium 2.4 MG/DL (1.8-2.4); Osmolality,Calculated 315.7 MOS/KG (273-304); Potassium 4.2 MMOL/L (3.5-5.1)
[2017-07-26] MEDS: DILTIAZEM INJ 100 MG in SODIUM CHLORIDE 0.9% 100 ML IV SCH ×2 (05:30→21:41)
[2017-07-26] MEDS: PIPERACILLIN/TAZOBACTAM 3,375 MG in SODIUM CHLORIDE 0.9% 100 ML IV SCH ×3 (05:30→22:38)
[2017-07-26] MEDS: INSULIN REGULAR 100 UNIT/ML SUBCUT SCH ×6 (05:32→18:04)
[2017-07-26] MEDS: PHENYTOIN 100 MG/2 ML VIAL IV SCH ×3 (05:33→22:33)
[2017-07-26] MEDS: PANTOPRAZOLE 40 MG VIAL IV SCH (09:33)
[2017-07-26] MEDS: methylPREDNISolone SOD SUC 40 MG/1 ML VIAL IV SCH ×2 (09:33→21:24)
[2017-07-26] MEDS: ASPIRIN CHEW 81 MG TABLET PO SCH (09:33)
[2017-07-26] MEDS: METOPROLOL TARTRATE 25 MG TABLET PO SCH ×2 (09:33→21:24)
[2017-07-26] MEDS: ENOXAPARIN 40 MG/0.4 ML SYRINGE SUBCUT SCH (09:33)
[2017-07-26] MEDS: INSULIN GLARGINE 100 UNIT/ML SUBCUT SCH ×2 (09:35→21:32)
[2017-07-26] MEDS: MULTIVITAMIN LIQUID (CENTRUM) 60 ML BOTTLE PER TUBE SCH (09:36)
[2017-07-26] MEDS: ATORVASTATIN 40 MG TABLET PO SCH (21:24)
[2017-07-27] MEDS: INSULIN REGULAR 100 UNIT/ML SUBCUT SCH ×8 (00:27→17:56)
[2017-07-27] MEDS: ALBUTEROL/IPRATROPIUM 3 ML NEB RESP TX SCH ×4 (00:52→19:05)
[2017-07-27] MEDS: DEXTROSE 5% 1,000 ML IV SCH ×2 (02:18→15:31)
[2017-07-27 04:21] LABS: ABG Base Excess -2.5 MMOL/L (-2.5-2.5); ABG HCO3 22.4 MMOL/L (20-26); ABG Oxygen Saturation 99.1 % (95-100); ABG PCO2 32.3 MM HG (35-48); ABG PH 7.422 (7.35-7.45); ABG TCO2 18.4 MMOL/L (23-27); Allen Test Positive; Pt O2 Delivery Device Ventilator
[2017-07-27 04:47] LABS: Calcium 7.6 MG/DL (8.5-10.1); Magnesium 2.5 MG/DL (1.8-2.4); Osmolality,Calculated 321.8 MOS/KG (273-304); Potassium 4.6 MMOL/L (3.5-5.1)
[2017-07-27 06:00] LABS: Phosphorous 3.7 MG/DL (2.5-4.9); Prealbumin 14.3 MG/DL (20-40)
[2017-07-27] MEDS: PROPOFOL 1,000 MG/100 ML BOTTLE IV SCH (06:15)
[2017-07-27] MEDS: DILTIAZEM INJ 100 MG in SODIUM CHLORIDE 0.9% 100 ML IV SCH (06:21)
[2017-07-27] MEDS: PHENYTOIN 100 MG/2 ML VIAL IV SCH ×3 (06:22→22:12)
[2017-07-27] MEDS: PIPERACILLIN/TAZOBACTAM 3,375 MG in SODIUM CHLORIDE 0.9% 100 ML IV SCH ×2 (06:29→13:34)
[2017-07-27] MEDS: methylPREDNISolone SOD SUC 40 MG/1 ML VIAL IV SCH ×2 (09:39→22:05)
[2017-07-27] MEDS: PANTOPRAZOLE 40 MG VIAL IV SCH (09:39)
[2017-07-27] MEDS: METOPROLOL TARTRATE 25 MG TABLET PO SCH ×2 (09:39→22:02)
[2017-07-27] MEDS: DILTIAZEM 60 MG TABLET PO SCH ×3 (09:40→22:01)
[2017-07-27] MEDS: ASPIRIN CHEW 81 MG TABLET PO SCH (09:40)
[2017-07-27] MEDS: INSULIN GLARGINE 100 UNIT/ML SUBCUT SCH ×2 (09:40→22:03)
[2017-07-27] MEDS: ENOXAPARIN 40 MG/0.4 ML SYRINGE SUBCUT SCH (09:40)
[2017-07-27] MEDS: MULTIVITAMIN LIQUID (CENTRUM) 60 ML BOTTLE PER TUBE SCH (09:41)
[2017-07-27] MEDS ORDERED: INSULIN REGULAR 100 UNIT/ML SUBCUT ONE (21:39)
[2017-07-27] MEDS: ATORVASTATIN 40 MG TABLET PO SCH (22:02)
[2017-07-28] MEDS: INSULIN REGULAR 100 UNIT/ML SUBCUT SCH ×8 (00:01→18:05)
[2017-07-28] MEDS: ALBUTEROL/IPRATROPIUM 3 ML NEB RESP TX SCH ×4 (00:31→19:57)
[2017-07-28 03:03] LABS: Allen Test Positive; Pt O2 Delivery Device Ventilator
[2017-07-28 03:04] LABS: ABG HCO3 20.3 MMOL/L (20-26); ABG Oxygen Saturation 99.1 % (95-100); ABG PCO2 33.1 MM HG (35-48); ABG PH 7.376 (7.35-7.45); ABG TCO2 17.7 MMOL/L (23-27)
[2017-07-28] MEDS: DEXTROSE 5% 1,000 ML IV SCH ×2 (04:03→07:24)
[2017-07-28] MEDS: PROPOFOL 1,000 MG/100 ML BOTTLE IV SCH (05:19)
[2017-07-28] MEDS: PHENYTOIN 100 MG/2 ML VIAL IV SCH ×3 (05:51→22:02)
[2017-07-28 06:12] LABS: Basophils % 0.1 % (0.0-0.8); Hematocrit 30.5 VOL% (42.0-52.0); Hemoglobin 9.9 GM/DL (14.0-18.0); Immature Granulocytes % 2.6 %; Immature Granulocytes Absolute 0.55 #; Lymphocytes % 4.4 % (21.2-54.2); Mean Corpuscular HGB Conc 32.5 GM/DL (32-36); Mean Corpuscular Hemoglobin 30 PG (27-34); Mean Corpuscular Volume 91.6 FL (87-102); Mean Platelet Volume 12.2 FL (9.6-12.0); Monocytes # 1.9 10*3/uL (0.11-0.8); Monocytes % 8.9 % (1.7-12.7); NRBC # 0.25 10*3/uL; Neutrophils # 18.1 10*3/uL (1.4-7.4); Platelet Count 212 T/CUMM (130-400); Red Blood Count 3.33 MC/CUMM (3.8-5.5); Red Cell Distribution Width 16.5 % (9.3-17.3); White Blood Count 21.5 T/CUMM (4-12)
[2017-07-28 06:46] LABS: Magnesium 2.8 MG/DL (1.8-2.4); Osmolality,Calculated 318.5 MOS/KG (273-304); Potassium 5.1 MMOL/L (3.5-5.1)
[2017-07-28 07:09] LABS: Lymphocytes 4 % (20-55); Nucleated Red Blood Cells 1 (0-5); Polychromasia Slight; Segmented Neutrophils 92 % (50-85); Total Cells Counted 100
[2017-07-28 07:10] LABS: Hypochromasia Slight; Platelet Estimate Adequate
[2017-07-28] MEDS: methylPREDNISolone SOD SUC 40 MG/1 ML VIAL IV SCH ×2 (09:00→20:58)
[2017-07-28] MEDS: MULTIVITAMIN LIQUID (CENTRUM) 60 ML BOTTLE PER TUBE SCH (09:00)
[2017-07-28] MEDS: PANTOPRAZOLE 40 MG VIAL IV SCH (09:00)
[2017-07-28] MEDS: DILTIAZEM 60 MG TABLET PO SCH ×3 (09:00→20:56)
[2017-07-28] MEDS: METOPROLOL TARTRATE 25 MG TABLET PO SCH ×2 (09:00→20:56)
[2017-07-28] MEDS: INSULIN GLARGINE 100 UNIT/ML SUBCUT SCH ×2 (09:00→20:57)
[2017-07-28] MEDS: SODIUM CHLORIDE 0.9% 1,000 ML IV SCH ×2 (09:00→18:30)
[2017-07-28] MEDS ORDERED: SEVOFLURANE 1 UNIT/15 MINUTE INH ONE (11:40)
[2017-07-28] MEDS ORDERED: PROPOFOL 200 MG/20 ML VIAL IV ONE (11:40)
[2017-07-28] MEDS ORDERED: MIDAZOLAM 2 MG/2 ML VIAL ONE (11:41)
[2017-07-28] MEDS ORDERED: ROCURONIUM 100 MG/10 ML VIAL IV ONE (11:41)
[2017-07-28] MEDS ORDERED: fentaNYL 100 MCG/2 ML VIAL ONE (11:41)
[2017-07-28] MEDS: LORazepam 2 MG/1 ML VIAL IV PRN (13:50)
[2017-07-28] MEDS: ATORVASTATIN 40 MG TABLET PO SCH (20:57)
[2017-07-29] MEDS: ALBUTEROL/IPRATROPIUM 3 ML NEB RESP TX SCH ×4 (00:02→19:43)
[2017-07-29] MEDS: INSULIN REGULAR 100 UNIT/ML SUBCUT SCH ×8 (00:27→18:20)
[2017-07-29 03:34] LABS: ABG Base Excess -4.2 MMOL/L (-2.5-2.5); ABG HCO3 20.8 MMOL/L (20-26); ABG Oxygen Saturation 95.7 % (95-100); ABG PCO2 33.5 MM HG (35-48); ABG PH 7.389 (7.35-7.45); ABG PO2 76.1 MM HG (80-95); ABG TCO2 19.3 MMOL/L (23-27); Allen Test Positive; Pt O2 Delivery Device Ventilator
[2017-07-29 04:37] LABS: Basophils % 0.2 % (0.0-0.8); Hematocrit 27.2 VOL% (42.0-52.0); Immature Granulocytes % 2.3 %; Immature Granulocytes Absolute 0.52 #; Lymphocytes # 0.7 10*3/uL (1.4-4.0); Lymphocytes % 3.1 % (21.2-54.2); Mean Corpuscular HGB Conc 33.1 GM/DL (32-36); Mean Corpuscular Hemoglobin 30 PG (27-34); Mean Corpuscular Volume 91.9 FL (87-102); Mean Platelet Volume 12.8 FL (9.6-12.0); Monocytes # 1.2 10*3/uL (0.11-0.8); Monocytes % 5.2 % (1.7-12.7); NRBC # 0.16 10*3/uL; Neutrophils # 20.3 10*3/uL (1.4-7.4); Neutrophils % 89.2 % (38.7-73.9); Platelet Count 187 T/CUMM (130-400); Red Blood Count 2.96 MC/CUMM (3.8-5.5); Red Cell Distribution Width 16.5 % (9.3-17.3); White Blood Count 22.7 T/CUMM (4-12)
[2017-07-29 05:21] LABS: Albumin 1.8 G/DL (3.4-5.0); Bilirubin,Total 0.4 MG/DL (0.2-1.0); Osmolality,Calculated 316.7 MOS/KG (273-304); Potassium 4.9 MMOL/L (3.5-5.1); Total Protein 4.3 G/DL (6.4-8.3)
[2017-07-29] MEDS: PROPOFOL 1,000 MG/100 ML BOTTLE IV SCH (05:50)
[2017-07-29] MEDS: SODIUM CHLORIDE 0.9% 1,000 ML IV SCH ×4 (05:51→21:33)
[2017-07-29] MEDS: PHENYTOIN 100 MG/2 ML VIAL IV SCH ×3 (05:54→21:29)
[2017-07-29 06:35] LABS: Band Neutrophils 1 % (0-10); Elliptocytes Few; Giant Platelets Few; Hypochromasia 1+; Lymphocytes 3 % (20-55); Microcytosis Slight; Platelet Estimate Normal; Segmented Neutrophils 91 % (50-85); Total Cells Counted 100
[2017-07-29] MEDS: MULTIVITAMIN LIQUID (CENTRUM) 60 ML BOTTLE PER TUBE SCH (09:30)
[2017-07-29] MEDS: PANTOPRAZOLE 40 MG VIAL IV SCH (09:30)
[2017-07-29] MEDS: METOPROLOL TARTRATE 25 MG TABLET PO SCH ×2 (09:30→21:18)
[2017-07-29] MEDS: DILTIAZEM 60 MG TABLET PO SCH ×3 (09:30→21:18)
[2017-07-29] MEDS: methylPREDNISolone SOD SUC 40 MG/1 ML VIAL IV SCH ×2 (09:30→21:24)
[2017-07-29] MEDS: INSULIN GLARGINE 100 UNIT/ML SUBCUT SCH ×2 (09:30→21:17)
[2017-07-29] MEDS: METOCLOPRAMIDE 10 MG/2 ML VIAL IV SCH ×2 (12:00→18:20)
[2017-07-29] MEDS: LORazepam 2 MG/1 ML VIAL IV PRN (16:10)
[2017-07-29] MEDS: ATORVASTATIN 40 MG TABLET PO SCH (21:18)
[2017-07-30] MEDS: INSULIN REGULAR 100 UNIT/ML SUBCUT SCH ×8 (00:18→18:10)
[2017-07-30] MEDS: METOCLOPRAMIDE 10 MG/2 ML VIAL IV SCH ×2 (00:20→06:26)
[2017-07-30] MEDS: ALBUTEROL/IPRATROPIUM 3 ML NEB RESP TX SCH ×4 (00:38→19:52)
[2017-07-30 03:04] LABS: ABG Base Excess -5.1 MMOL/L (-2.5-2.5); ABG HCO3 18.5 MMOL/L (20-26); ABG Oxygen Saturation 98.2 % (95-100); ABG PCO2 29.2 MM HG (35-48); ABG PH 7.419 (7.35-7.45); ABG PO2 143.4 MM HG (80-95); ABG TCO2 19.4 MMOL/L (23-27)
[2017-07-30 05:33] LABS: Basophils % 0.1 % (0.0-0.8); Hemoglobin 9.1 GM/DL (14.0-18.0); Immature Granulocytes Absolute 0.95 #; Lymphocytes # 0.6 10*3/uL (1.4-4.0); Lymphocytes % 2.6 % (21.2-54.2); Mean Corpuscular HGB Conc 32.5 GM/DL (32-36); Mean Corpuscular Hemoglobin 30 PG (27-34); Mean Corpuscular Volume 92.4 FL (87-102); Mean Platelet Volume 12.5 FL (9.6-12.0); Monocytes # 1.5 10*3/uL (0.11-0.8); Monocytes % 6.3 % (1.7-12.7); NRBC # 0.41 10*3/uL; Neutrophils # 20.7 10*3/uL (1.4-7.4); Platelet Count 214 T/CUMM (130-400); Red Blood Count 3.03 MC/CUMM (3.8-5.5); White Blood Count 23.8 T/CUMM (4-12)
[2017-07-30 06:06] LABS: Albumin 1.8 G/DL (3.4-5.0); Bilirubin,Total 0.4 MG/DL (0.2-1.0); Calcium 8.2 MG/DL (8.5-10.1); Osmolality,Calculated 331.1 MOS/KG (273-304); Potassium 5.4 MMOL/L (3.5-5.1); Total Protein 4.6 G/DL (6.4-8.3)
[2017-07-30 06:15] LABS: Band Neutrophils 1 % (0-10); Lymphocytes 4 % (20-55); Platelet Estimate Normal; Segmented Neutrophils 88 % (50-85); Total Cells Counted 100
[2017-07-30 06:16] LABS: Acanthocytes Few; Anisocytosis Slight; Burr Cells 1+; Macrocytosis Slight; Polychromasia 1+
[2017-07-30 06:25] LABS: Phenytoin (Dilantin) 3.9 UG/ML (10-20); Valproic Acid < 3.0 UG/ML (50-100)
[2017-07-30] MEDS: PHENYTOIN 100 MG/2 ML VIAL IV SCH (06:29)
[2017-07-30] MEDS: PROPOFOL 1,000 MG/100 ML BOTTLE IV SCH (06:32)
[2017-07-30] MEDS: SODIUM CHLORIDE 0.9% 1,000 ML IV SCH (06:33)
[2017-07-30] MEDS: INSULIN GLARGINE 100 UNIT/ML SUBCUT SCH ×2 (09:40→21:12)
[2017-07-30] MEDS: PANTOPRAZOLE 40 MG VIAL IV SCH (09:41)
[2017-07-30] MEDS: methylPREDNISolone SOD SUC 40 MG/1 ML VIAL IV SCH ×2 (09:41→21:13)
[2017-07-30] MEDS: METOPROLOL TARTRATE 25 MG TABLET PO SCH ×2 (09:42→21:03)
[2017-07-30] MEDS: ENOXAPARIN 40 MG/0.4 ML SYRINGE SUBCUT SCH (09:42)
[2017-07-30] MEDS: DILTIAZEM 60 MG TABLET PO SCH ×3 (09:42→21:03)
[2017-07-30] MEDS: ASPIRIN CHEW 81 MG TABLET PO SCH (09:42)
[2017-07-30] MEDS: PHENYTOIN 100 MG/4 ML UDCUP PO SCH ×3 (09:43→21:08)
[2017-07-30] MEDS: MULTIVITAMIN LIQUID (CENTRUM) 60 ML BOTTLE PER TUBE SCH (09:43)
[2017-07-30] MEDS: DEXTROSE 5% 1,000 ML IV SCH ×2 (09:52→23:02)
[2017-07-30] MEDS: levETIRAcetam LIQUID 100 MG/ML 30 ML/BOTTLE PO SCH ×3 (11:24→21:08)
[2017-07-30] MEDS: METOCLOPRAMIDE 10 MG/10 ML UDCUP PO SCH ×3 (12:41→21:08)
[2017-07-30] MEDS: ATORVASTATIN 40 MG TABLET PO SCH (21:03)
[2017-07-31] MEDS: INSULIN REGULAR 100 UNIT/ML SUBCUT SCH ×10 (00:18→23:57)
[2017-07-31] MEDS: ALBUTEROL/IPRATROPIUM 3 ML NEB RESP TX SCH ×4 (00:30→20:15)
[2017-07-31 02:55] LABS: ABG Base Excess -4.7 MMOL/L (-2.5-2.5); ABG HCO3 20.5 MMOL/L (20-26); ABG Oxygen Saturation 99.4 % (95-100); ABG PCO2 32.9 MM HG (35-48); ABG PH 7.384 (7.35-7.45); ABG TCO2 18.2 MMOL/L (23-27); Allen Test Positive; Pt O2 Delivery Device Ventilator
[2017-07-31 05:08] LABS: Basophils % 0.1 % (0.0-0.8); Hematocrit 28.4 VOL% (42.0-52.0); Hemoglobin 9.2 GM/DL (14.0-18.0); Immature Granulocytes % 4.7 %; Immature Granulocytes Absolute 1.29 #; Lymphocytes # 0.8 10*3/uL (1.4-4.0); Mean Corpuscular HGB Conc 32.4 GM/DL (32-36); Mean Corpuscular Hemoglobin 31 PG (27-34); Monocytes # 1.6 10*3/uL (0.11-0.8); Monocytes % 5.9 % (1.7-12.7); NRBC # 0.49 10*3/uL; Neutrophils # 23.7 10*3/uL (1.4-7.4); Neutrophils % 86.3 % (38.7-73.9); Platelet Count 197 T/CUMM (130-400); Red Blood Count 3.02 MC/CUMM (3.8-5.5); Red Cell Distribution Width 17.2 % (9.3-17.3); White Blood Count 27.5 T/CUMM (4-12)
[2017-07-31 05:34] LABS: Giant Platelets Few; Hypochromasia Slight; Lymphocytes 4 % (20-55); Macrocytosis Slight; Nucleated Red Blood Cells 6 (0-5); Platelet Estimate Normal; Polychromasia Slight; Segmented Neutrophils 91 % (50-85); Total Cells Counted 100
[2017-07-31] MEDS: PROPOFOL 1,000 MG/100 ML BOTTLE IV SCH (05:36)
[2017-07-31 05:46] LABS: Alanine Aminotransferase 359 U/L (16-61); Albumin 1.8 G/DL (3.4-5.0); Alkaline Phosphatase 111 U/L (45-117); Aspartate Amino Transferase 86 U/L (0-37); Bilirubin,Total < 0.39 MG/DL (0.2-1.0); Blood Urea Nitrogen 69 MG/DL (7-18); Glucose 286 MG/DL (74-106); Osmolality,Calculated 323.3 MOS/KG (273-304); Potassium 5.2 MMOL/L (3.5-5.1); Sodium 148 MMOL/L (136-145); Total Protein 4.5 G/DL (6.4-8.3)
[2017-07-31 06:10] LABS: Magnesium 2.7 MG/DL (1.8-2.4); Phosphorous 4.2 MG/DL (2.5-4.9); Prealbumin 22.4 MG/DL (20-40)
[2017-07-31] MEDS: METOCLOPRAMIDE 10 MG/10 ML UDCUP PO SCH ×4 (06:42→21:18)
[2017-07-31] MEDS: ENOXAPARIN 40 MG/0.4 ML SYRINGE SUBCUT SCH (09:24)
[2017-07-31] MEDS: PANTOPRAZOLE 40 MG VIAL IV SCH (09:25)
[2017-07-31] MEDS: PHENYTOIN 100 MG/4 ML UDCUP PO SCH ×3 (09:25→21:18)
[2017-07-31] MEDS: methylPREDNISolone SOD SUC 40 MG/1 ML VIAL IV SCH ×2 (09:25→21:19)
[2017-07-31] MEDS: DILTIAZEM 60 MG TABLET PO SCH ×3 (09:26→21:19)
[2017-07-31] MEDS: METOPROLOL TARTRATE 25 MG TABLET PO SCH ×2 (09:26→21:19)
[2017-07-31] MEDS: INSULIN GLARGINE 100 UNIT/ML SUBCUT SCH ×2 (09:26→21:19)
[2017-07-31] MEDS: MULTIVITAMIN LIQUID (CENTRUM) 60 ML BOTTLE PER TUBE SCH (09:27)
[2017-07-31] MEDS: levETIRAcetam LIQUID 100 MG/ML 30 ML/BOTTLE PO SCH ×3 (09:27→21:19)
[2017-07-31] MEDS: ASPIRIN CHEW 81 MG TABLET PO SCH (09:28)
[2017-07-31] MEDS: ATORVASTATIN 40 MG TABLET PO SCH (21:19)
[2017-08-01] MEDS: ALBUTEROL/IPRATROPIUM 3 ML NEB RESP TX SCH ×4 (01:34→19:06)
[2017-08-01 03:25] LABS: Allen Test Positive
[2017-08-01 03:26] LABS: ABG HCO3 21.9 MMOL/L (20-26); ABG PCO2 35.7 MM HG (35-48); ABG PH 7.388 (7.35-7.45); ABG TCO2 19.8 MMOL/L (23-27)
[2017-08-01 04:41] LABS: Basophils # 0.1 10*3/uL (0.0-0.2); Basophils % 0.2 % (0.0-0.8); Hematocrit 27.7 VOL% (42.0-52.0); Hemoglobin 8.8 GM/DL (14.0-18.0); Immature Granulocytes % 4.7 %; Immature Granulocytes Absolute 1.35 #; Lymphocytes # 0.8 10*3/uL (1.4-4.0); Lymphocytes % 2.9 % (21.2-54.2); Mean Corpuscular HGB Conc 31.8 GM/DL (32-36); Mean Corpuscular Hemoglobin 30 PG (27-34); Mean Corpuscular Volume 93.9 FL (87-102); Mean Platelet Volume 11.9 FL (9.6-12.0); Monocytes # 1.9 10*3/uL (0.11-0.8); Monocytes % 6.6 % (1.7-12.7); NRBC # 0.45 10*3/uL; Neutrophils # 24.8 10*3/uL (1.4-7.4); Neutrophils % 85.6 % (38.7-73.9); Platelet Count 195 T/CUMM (130-400); Red Blood Count 2.95 MC/CUMM (3.8-5.5); Red Cell Distribution Width 17.6 % (9.3-17.3)
[2017-08-01 05:02] LABS: Calcium 8.1 MG/DL (8.5-10.1); Potassium 5.5 MMOL/L (3.5-5.1)
[2017-08-01 05:15] LABS: Band Neutrophils 1 % (0-10); Lymphocytes 3 % (20-55); Nucleated Red Blood Cells 1 (0-5); Segmented Neutrophils 88 % (50-85); Total Cells Counted 100
[2017-08-01 05:16] LABS: Giant Platelets Few; Hypochromasia 1+; Macrocytosis Slight; Platelet Estimate Adequate; Polychromasia Slight
[2017-08-01] MEDS ORDERED: SODIUM POLYSTYRENE SULFATE 15 GM/60 ML BOTTLE PO STA (05:32)
[2017-08-01] MEDS: SODIUM CHLORIDE 0.45% 1,000 ML IV SCH (05:46)
[2017-08-01] MEDS: PROPOFOL 1,000 MG/100 ML BOTTLE IV SCH (05:49)
[2017-08-01] MEDS: INSULIN REGULAR 100 UNIT/ML SUBCUT SCH ×6 (06:09→18:40)
[2017-08-01] MEDS: ENOXAPARIN 40 MG/0.4 ML SYRINGE SUBCUT SCH (09:16)
[2017-08-01] MEDS: PANTOPRAZOLE 40 MG VIAL IV SCH (09:17)
[2017-08-01] MEDS: PHENYTOIN 100 MG/4 ML UDCUP PO SCH ×3 (09:17→20:37)
[2017-08-01] MEDS: METOPROLOL TARTRATE 25 MG TABLET PO SCH ×2 (09:17→20:38)
[2017-08-01] MEDS: METOCLOPRAMIDE 10 MG/10 ML UDCUP PO SCH ×4 (09:17→20:37)
[2017-08-01] MEDS: DILTIAZEM 60 MG TABLET PO SCH ×3 (09:17→20:37)
[2017-08-01] MEDS: INSULIN GLARGINE 100 UNIT/ML SUBCUT SCH ×2 (09:18→20:38)
[2017-08-01] MEDS: levETIRAcetam LIQUID 100 MG/ML 30 ML/BOTTLE PO SCH ×3 (09:18→20:36)
[2017-08-01] MEDS: ASPIRIN CHEW 81 MG TABLET PO SCH (09:18)
[2017-08-01] MEDS: MULTIVITAMIN LIQUID (CENTRUM) 60 ML BOTTLE PER TUBE SCH (09:18)
[2017-08-01] MEDS: methylPREDNISolone SOD SUC 40 MG/1 ML VIAL IV SCH ×2 (09:21→20:39)
[2017-08-01 12:10] LABS: Apearance,Urine CLOUDY (Clear); Bacteria,Urine Occasional /HPF (Few); Bilirubin,Urine Negative (Negative); Blood, Urine Large mg/dL (Negative); Glucose,Urine (UA) >=500 mg/dL (Negative); Ketones,Urine Negative (Negative); Mucus,Urine Occasional /LPF (Occasional); Nitrite,Urine Negative (Negative); Protein,Urine 30 MG/DL; RBC,Urine 53 /HPF (0-4); Urine Color Yellow (Yellow); Urine Specific Gravity 1.011 (1.001-1.035); Urine Urobilinogen < 2.0 EU/DL (0.2-1.0); WBC,Urine 7 /HPF (0-6)
[2017-08-01] MEDS ORDERED: ZINC OXIDE PASTE 113 GM TUBE TOP PRN (12:20)
[2017-08-01] MEDS ORDERED: SODIUM POLYSTYRENE SULFATE 15 GM/60 ML BOTTLE PO ONE (16:11)
[2017-08-01] MEDS: ZINC OXIDE PASTE 113 GM TUBE TOP SCH (20:36)
[2017-08-01] MEDS: ATORVASTATIN 40 MG TABLET PO SCH (20:38)
[2017-08-02] MEDS: INSULIN REGULAR 100 UNIT/ML SUBCUT SCH ×8 (00:47→18:17)
[2017-08-02] MEDS: SODIUM CHLORIDE 0.45% 1,000 ML IV SCH (01:21)
[2017-08-02] MEDS: ALBUTEROL/IPRATROPIUM 3 ML NEB RESP TX SCH ×4 (01:36→19:16)
[2017-08-02 03:10] LABS: Hemoglobin 8.7 GM/DL (14.0-18.0); Immature Granulocytes % 4.4 %; Lymphocytes # 0.6 10*3/uL (1.4-4.0); Lymphocytes % 2.3 % (21.2-54.2); Mean Corpuscular HGB Conc 31.1 GM/DL (32-36); Mean Corpuscular Hemoglobin 30 PG (27-34); Mean Corpuscular Volume 96.2 FL (87-102); Mean Platelet Volume 11.5 FL (9.6-12.0); Monocytes # 1.6 10*3/uL (0.11-0.8); Monocytes % 6.5 % (1.7-12.7); NRBC # 0.42 10*3/uL; Neutrophils # 21.5 10*3/uL (1.4-7.4); Neutrophils % 86.8 % (38.7-73.9); Platelet Count 179 T/CUMM (130-400); Red Blood Count 2.91 MC/CUMM (3.8-5.5); Red Cell Distribution Width 18.1 % (9.3-17.3); White Blood Count 24.8 T/CUMM (4-12)
[2017-08-02 03:33] LABS: Alanine Aminotransferase 278 U/L (16-61); Albumin 1.7 G/DL (3.4-5.0); Alkaline Phosphatase 117 U/L (45-117); Aspartate Amino Transferase 160 U/L (0-37); Bilirubin,Total < 0.39 MG/DL (0.2-1.0); Blood Urea Nitrogen 51 MG/DL (7-18); Calcium 7.9 MG/DL (8.5-10.1); Glucose 157 MG/DL (74-106); Osmolality,Calculated 321.4 MOS/KG (273-304); Potassium 4.8 MMOL/L (3.5-5.1); Sodium 154 MMOL/L (136-145); Total Protein 4.4 G/DL (6.4-8.3)
[2017-08-02] MEDS: PROPOFOL 1,000 MG/100 ML BOTTLE IV SCH (04:22)
[2017-08-02 04:48] LABS: Lymphocytes 3 % (20-55); Myelocytes 1 %; Nucleated Red Blood Cells 1 (0-5); Segmented Neutrophils 91 % (50-85)
[2017-08-02 04:49] LABS: Polychromasia Few
[2017-08-02 04:50] LABS: Giant Platelets Few; Hypochromasia 1+
[2017-08-02 04:52] LABS: Platelet Estimate Normal; Total Cells Counted 100
[2017-08-02] MEDS: DILTIAZEM 60 MG TABLET PO SCH ×3 (08:44→21:16)
[2017-08-02] MEDS: ASPIRIN CHEW 81 MG TABLET PO SCH (08:45)
[2017-08-02] MEDS: PHENYTOIN 100 MG/4 ML UDCUP PO SCH ×3 (08:45→21:16)
[2017-08-02] MEDS: METOPROLOL TARTRATE 25 MG TABLET PO SCH ×2 (08:45→21:16)
[2017-08-02] MEDS: ZINC OXIDE PASTE 113 GM TUBE TOP SCH ×2 (08:45→21:17)
[2017-08-02] MEDS: MULTIVITAMIN LIQUID (CENTRUM) 60 ML BOTTLE PER TUBE SCH (08:46)
[2017-08-02] MEDS: levETIRAcetam LIQUID 100 MG/ML 30 ML/BOTTLE PO SCH ×3 (08:46→21:16)
[2017-08-02] MEDS: PANTOPRAZOLE 40 MG VIAL IV SCH (08:47)
[2017-08-02] MEDS: ENOXAPARIN 40 MG/0.4 ML SYRINGE SUBCUT SCH (08:47)
[2017-08-02] MEDS: INSULIN GLARGINE 100 UNIT/ML SUBCUT SCH ×2 (08:58→20:33)
[2017-08-02] MEDS: methylPREDNISolone SOD SUC 40 MG/1 ML VIAL IV SCH ×3 (09:21→21:28)
[2017-08-02] MEDS: METOCLOPRAMIDE 10 MG/10 ML UDCUP PO SCH ×3 (09:21→15:31)
[2017-08-02] MEDS: ATORVASTATIN 40 MG TABLET PO SCH (21:16)
[2017-08-03] MEDS: INSULIN REGULAR 100 UNIT/ML SUBCUT SCH ×8 (00:28→18:44)
[2017-08-03] MEDS: ALBUTEROL/IPRATROPIUM 3 ML NEB RESP TX SCH ×4 (00:49→19:46)
[2017-08-03 04:32] LABS: Basophils % 0.2 % (0.0-0.8); Eosinophils # 0.1 10*3/uL (0.0-0.87); Eosinophils % 0.6 % (0.00-10.9); Hematocrit 27.8 VOL% (42.0-52.0); Hemoglobin 8.8 GM/DL (14.0-18.0); Immature Granulocytes % 5.4 %; Immature Granulocytes Absolute 1.17 #; Lymphocytes # 0.9 10*3/uL (1.4-4.0); Lymphocytes % 4.2 % (21.2-54.2); Mean Corpuscular HGB Conc 31.7 GM/DL (32-36); Mean Corpuscular Hemoglobin 30 PG (27-34); Mean Corpuscular Volume 95.2 FL (87-102); Mean Platelet Volume 11.7 FL (9.6-12.0); Monocytes # 1.5 10*3/uL (0.11-0.8); Monocytes % 6.9 % (1.7-12.7); NRBC # 0.38 10*3/uL; Neutrophils % 82.7 % (38.7-73.9); Platelet Count 181 T/CUMM (130-400); Red Blood Count 2.92 MC/CUMM (3.8-5.5); Red Cell Distribution Width 18.6 % (9.3-17.3); White Blood Count 21.7 T/CUMM (4-12)
[2017-08-03 04:47] LABS: Alanine Aminotransferase 242 U/L (16-61); Albumin 1.7 G/DL (3.4-5.0); Alkaline Phosphatase 118 U/L (45-117); Aspartate Amino Transferase 157 U/L (0-37); Bilirubin,Total < 0.39 MG/DL (0.2-1.0); Blood Urea Nitrogen 48 MG/DL (7-18); Calcium 7.9 MG/DL (8.5-10.1); Glucose 195 MG/DL (74-106); Osmolality,Calculated 313.1 MOS/KG (273-304); Potassium 4.7 MMOL/L (3.5-5.1); Sodium 149 MMOL/L (136-145); Total Protein 4.4 G/DL (6.4-8.3)
[2017-08-03 04:55] LABS: Magnesium 2.1 MG/DL (1.8-2.4); Phosphorous 4.6 MG/DL (2.5-4.9)
[2017-08-03] MEDS: PROPOFOL 1,000 MG/100 ML BOTTLE IV SCH (05:08)
[2017-08-03 05:37] LABS: Band Neutrophils 2 % (0-10); Burr Cells Slight; Eosinophils 2 % (0-10); Giant Platelets Few; Hypochromasia 1+; Lymphocytes 6 % (20-55); Nucleated Red Blood Cells 2 (0-5); Platelet Estimate Normal; Segmented Neutrophils 83 % (50-85); Total Cells Counted 100
[2017-08-03] MEDS: ASPIRIN CHEW 81 MG TABLET PO SCH (09:06)
[2017-08-03] MEDS: DILTIAZEM 60 MG TABLET PO SCH ×3 (09:06→21:19)
[2017-08-03] MEDS: METOCLOPRAMIDE 10 MG/10 ML UDCUP PO SCH ×3 (09:06→16:11)
[2017-08-03] MEDS: levETIRAcetam LIQUID 100 MG/ML 30 ML/BOTTLE PO SCH ×3 (09:07→21:18)
[2017-08-03] MEDS: PANTOPRAZOLE 40 MG VIAL IV SCH (09:07)
[2017-08-03] MEDS: ENOXAPARIN 40 MG/0.4 ML SYRINGE SUBCUT SCH (09:07)
[2017-08-03] MEDS: predniSONE 20 MG TABLET PO SCH (09:07)
[2017-08-03] MEDS: MULTIVITAMIN LIQUID (CENTRUM) 60 ML BOTTLE PER TUBE SCH (09:07)
[2017-08-03] MEDS: METOPROLOL TARTRATE 25 MG TABLET PO SCH ×2 (09:07→21:19)
[2017-08-03] MEDS: ZINC OXIDE PASTE 113 GM TUBE TOP SCH ×2 (09:07→21:19)
[2017-08-03] MEDS: INSULIN GLARGINE 100 UNIT/ML SUBCUT SCH ×2 (09:56→21:19)
[2017-08-03] MEDS: PHENYTOIN 100 MG/4 ML UDCUP PO SCH ×3 (10:41→21:19)
[2017-08-03] MEDS: THEOPHYLLINE 5.33 MG/ML 30 ML/BOTTLE PO SCH ×2 (12:12→18:44)
[2017-08-03] MEDS: FLUCONAZOLE 40 MG/ML 35 ML/BOTTLE PEG SCH (16:11)
[2017-08-03] MEDS: ATORVASTATIN 40 MG TABLET PO SCH (21:19)
[2017-08-04] MEDS: THEOPHYLLINE 5.33 MG/ML 30 ML/BOTTLE PO SCH ×3 (00:09→12:28)
[2017-08-04] MEDS: INSULIN REGULAR 100 UNIT/ML SUBCUT SCH ×4 (00:09→06:32)
[2017-08-04] MEDS: ALBUTEROL/IPRATROPIUM 3 ML NEB RESP TX SCH ×3 (00:33→12:26)
[2017-08-04 04:41] LABS: Basophils % 0.1 % (0.0-0.8); Eosinophils # 0.2 10*3/uL (0.0-0.87); Eosinophils % 1.3 % (0.00-10.9); Hematocrit 27.5 VOL% (42.0-52.0); Hemoglobin 8.6 GM/DL (14.0-18.0); Immature Granulocytes % 5.9 %; Immature Granulocytes Absolute 1.08 #; Lymphocytes # 1.3 10*3/uL (1.4-4.0); Lymphocytes % 7.3 % (21.2-54.2); Mean Corpuscular HGB Conc 31.3 GM/DL (32-36); Mean Corpuscular Hemoglobin 30 PG (27-34); Mean Corpuscular Volume 96.5 FL (87-102); Mean Platelet Volume 11.5 FL (9.6-12.0); Monocytes # 1.6 10*3/uL (0.11-0.8); Monocytes % 8.9 % (1.7-12.7); NRBC # 0.53 10*3/uL; Neutrophils % 76.5 % (38.7-73.9); Platelet Count 167 T/CUMM (130-400); Red Blood Count 2.85 MC/CUMM (3.8-5.5); White Blood Count 18.3 T/CUMM (4-12)
[2017-08-04 05:09] LABS: Albumin 1.7 G/DL (3.4-5.0); Bilirubin,Total 0.4 MG/DL (0.2-1.0); Calcium 7.7 MG/DL (8.5-10.1); Magnesium 2.2 MG/DL (1.8-2.4); Osmolality,Calculated 305.1 MOS/KG (273-304); Potassium 4.4 MMOL/L (3.5-5.1); Total Protein 4.3 G/DL (6.4-8.3)
[2017-08-04 05:11] LABS: Eosinophils 2 % (0-10); Giant Platelets Few; Hypochromasia 1+; Lymphocytes 6 % (20-55); Nucleated Red Blood Cells 1 (0-5); Platelet Estimate Normal; Segmented Neutrophils 81 % (50-85); Total Cells Counted 100
[2017-08-04] MEDS: PANTOPRAZOLE 40 MG VIAL IV SCH (08:49)
[2017-08-04] MEDS: METOPROLOL TARTRATE 25 MG TABLET PO SCH (08:49)
[2017-08-04] MEDS: PHENYTOIN 100 MG/4 ML UDCUP PO SCH (08:49)
[2017-08-04] MEDS: ENOXAPARIN 40 MG/0.4 ML SYRINGE SUBCUT SCH (08:49)
[2017-08-04] MEDS: DILTIAZEM 60 MG TABLET PO SCH (08:49)
[2017-08-04] MEDS: METOCLOPRAMIDE 10 MG/10 ML UDCUP PO SCH ×2 (08:49→12:28)
[2017-08-04] MEDS: ZINC OXIDE PASTE 113 GM TUBE TOP SCH (08:50)
[2017-08-04] MEDS: ASPIRIN CHEW 81 MG TABLET PO SCH (08:50)
[2017-08-04] MEDS: predniSONE 20 MG TABLET PO SCH (08:50)
[2017-08-04] MEDS: MULTIVITAMIN LIQUID (CENTRUM) 60 ML BOTTLE PER TUBE SCH (08:51)
[2017-08-04] MEDS: FLUCONAZOLE 40 MG/ML 35 ML/BOTTLE PEG SCH (08:52)
[2017-08-04] MEDS: INSULIN GLARGINE 100 UNIT/ML SUBCUT SCH (08:54)
[2017-08-04] MEDS: levETIRAcetam LIQUID 100 MG/ML 30 ML/BOTTLE PO SCH (08:54)
[2017-08-04 12:23] VITALS: BP 120/74
== END 2017-08-04 13:15 | DRG 3 ==
LOC: N.4E 16:06 → SUATTDRO 16:06 → N.CC 07-14 03:41 → N.ICU 07-15 17:07 → N.2E 07-18 18:19 → N.ICU 07-20 04:36
PROVIDERS: ADMIT Hospitalist; ATTEND Internal Medicine
PROC: EGDWPEG (ICD-10-PCS; 2017-07-28 07:35)